=== PATIENT | male | born 1995 | race African-American/Black ===

== ENCOUNTER 2016-10-20 08:04 | Emergency (ER) | payer SELFPAY ==
[~2016-10-20] VITALS: Ht 185.4 cm; Wt 77.0 kg
[2016-10-20 08:05] VITALS: BP 109/59
[2016-10-20] MEDS ORDERED: ACETAMINOPHEN 325MG TABLET PO ONE (08:30)
== END 2016-10-20 09:29 | disposition home or self-care (01) ==
LOC: ER 08:16
DX: M25.561 Pain in right knee (principal); M25.562 Pain in left knee; I10 Essential (primary) hypertension; F12.10 Cannabis abuse, uncomplicated
CPT/HCPCS: 73562; 99284; Z7610

== ENCOUNTER 2016-10-28 13:01 | Emergency (ER) | payer SELFPAY ==
[~2016-10-28] VITALS: Ht 188 cm; Wt 73.0 kg
[2016-10-28 19:55] VITALS: BP 121/63
== END 2016-10-28 20:08 | disposition home or self-care (01) ==
LOC: ER 13:03
DX: M25.562 Pain in left knee (principal); V89.2XXA Person injured in unspecified motor-vehicle accident, traffic, initial encounter; Y93.89 Activity, other specified; Y92.89 Other specified places as the place of occurrence of the external cause; Y99.8 Other external cause status
CPT/HCPCS: 99283

== ENCOUNTER 2024-02-05 00:18 | Emergency (ER) | payer MEDICAID ==
[~2024-02-05] VITALS: Ht 188 cm; Wt 68.0 kg
[2024-02-05 00:21] VITALS: O2SAT 98
[2024-02-05] MEDS: DIPHENHYDRAMINE 50MG/ML VIAL IV ONE (00:57)
[2024-02-05] MEDS: METHYLPREDNISOLONE SOD SUCC 125MG/2ML (ACT-O-VIAL) IV ONE (00:59)
[2024-02-05] MEDS: EPINEPHRINE 1:1000 1 MG/ML AMP IM ONE (01:04)
[2024-02-05] MEDS: ONDANSETRON HCL 4MG/2ML INJ IV ONE (01:10)
[2024-02-05] MEDS ORDERED: EPIN0.3P3 IM (02:22)
[2024-02-05 03:40] VITALS: BP 107/52; PULSE 78; RESP 14; TEMP 36.72516; O2SAT 99
== END 2024-02-05 03:41 | disposition home or self-care (01) ==
LOC: ER 00:18
DX: T78.2XXA Anaphylactic shock, unspecified, initial encounter (principal); Z91.018 Allergy to other foods
CPT/HCPCS: 96372; 96374; 96375; 99284; J1200; J3490; J2919; J2405; Z7610 ×6

== ENCOUNTER 2024-10-22 00:41 | Emergency (ER) | payer MEDICAID ==
[~2024-10-22] VITALS: Ht 188 cm; Wt 72.6 kg
[~2024-10-22 00:41] MED LIST: EPIN0.3P3 IM
[2024-10-22 01:12] VITALS: TEMP 36.7; O2SAT 98
[2024-10-22] MEDS: DEXAMETHASONE 10 MG/ML VIAL IM ONE (01:46)
[2024-10-22 03:24] VITALS: BP 101/59; PULSE 58; RESP 11; O2SAT 99
== END 2024-10-22 04:21 | disposition home or self-care (01) ==
LOC: ER 00:41
DX: T78.2XXA Anaphylactic shock, unspecified, initial encounter (principal); T78.40XA Allergy, unspecified, initial encounter; Y92.89 Other specified places as the place of occurrence of the external cause
CPT/HCPCS: 99291; 96372; J1100